=== PATIENT | female | born 1965 | race Caucasian/White ===

== ENCOUNTER → 2021-07-11 | Outpatient (CLI) | payer MEDICAID ==
[~2021-07-11] MED LIST: ABILIFY; ASPIR 8181 MG PO; AVELOX400 MG PO; B/P MED; BACTRIM DS TAB1 EACH; BENTYL 20 MG TA20 M1 PO; BUPROPION; CELEXA; CELEXA20 MG PO; CELEXA40 MG PO; CIPROFLOXACIN500 M1 PO; CLONAZEPAM; CLONAZEPAM 1 MG1 M1 PO; CLONAZEPAM PO; COLESTID1 GM PO; COREG6.25 MG PO; COZAAR 50 MG TA50 M2 PO; CRESTOR; CRESTOR20 MG PO; CYMBALTA20 MG PO; CYMBALTA60 MG PO; DIABETA 1.25M1.25 M1; FENOFIBRIC ACI135 MG PO; FLONASE16 GM INH; GLUCOPHAGE1000 MG PO; GLYBURIDE 5 MG T5 MG PO; HTN MED; JANUMET 50-1,01 EACH PO; JANUVIA25 MG; LAMICTAL100 MG; LANTUS SUBQ; LANTUSSOLASTAR; LEVEMIR FL100 UNIT/1 SQ; LEVEMIR SUBQ; LISINOPRIL20 MG PO; METFORMIN; METFORMIN HCL500 MG PO; NORCO 5-325 TA1 EACH PO; NOVOLOG100 UNIT/1 SUBQ; OMEGA-31000 M1 PO; PERCOCET 7.5-31 EACH PO; PREDNISONE 10 M10 MG PO; PROAIR HFA8.5 GM IH; PROAIR HFA8.5 GM INH; PROMETHAZINE V480 M1 PO; REGLAN 10 MG TA10 MG PO; TRICOR; TRICOR48 MG PO; TRILIPIX135 MG PO; TRILIPIX45 MG PO; VENTOLIN HFA 1818 GM INH; VIIBRYD40 MG PO; VITAMIN D1000 UNI1 PO; VITAMIN D400 UNI1; ZOFRAN ODT4 MG PO; ZPAK PO; ZYRTEC10 MG PO
== END ==
LOC: M.WC 07-09 09:00
PROVIDERS: ATTEND Family Medicine
DX: S81.801A Unspecified open wound, right lower leg, initial encounter (principal); S41.102A Unspecified open wound of left upper arm, initial encounter; L98.8 Other specified disorders of the skin and subcutaneous tissue; L28.1 Prurigo nodularis; R21 Rash and other nonspecific skin eruption; F17.200 Nicotine dependence, unspecified, uncomplicated; Z79.899 Other long term (current) drug therapy; X58.XXXA Exposure to other specified factors, initial encounter; Y93.89 Activity, other specified; Y92.89 Other specified places as the place of occurrence of the external cause; Y99.8 Other external cause status

== ENCOUNTER → 2021-07-18 | Outpatient (CLI) | payer MEDICAID | LOC: M.WC 08:29 | PROVIDERS: ATTEND Family Medicine | DX: S81.801D Unspecified open wound, right lower leg, subsequent encounter (principal); S41.102D Unspecified open wound of left upper arm, subsequent encounter; L98.8 Other specified disorders of the skin and subcutaneous tissue; L28.1 Prurigo nodularis; R21 Rash and other nonspecific skin eruption; F17.200 Nicotine dependence, unspecified, uncomplicated; X58.XXXD Exposure to other specified factors, subsequent encounter ==

== ENCOUNTER → 2021-07-25 | Outpatient (CLI) | payer MEDICAID | LOC: M.WC 07-24 13:49 | PROVIDERS: ATTEND Family Medicine | DX: S81.801D Unspecified open wound, right lower leg, subsequent encounter (principal); S41.102D Unspecified open wound of left upper arm, subsequent encounter; L98.8 Other specified disorders of the skin and subcutaneous tissue; L28.1 Prurigo nodularis; R21 Rash and other nonspecific skin eruption; F17.200 Nicotine dependence, unspecified, uncomplicated; Z79.899 Other long term (current) drug therapy; X58.XXXD Exposure to other specified factors, subsequent encounter ==

== ENCOUNTER → 2021-08-01 | Outpatient (CLI) | payer MEDICAID | LOC: M.WC 09:08 | PROVIDERS: ATTEND Family Medicine | DX: S81.801D Unspecified open wound, right lower leg, subsequent encounter (principal); S41.102D Unspecified open wound of left upper arm, subsequent encounter; L98.8 Other specified disorders of the skin and subcutaneous tissue; L28.1 Prurigo nodularis; R21 Rash and other nonspecific skin eruption; F17.200 Nicotine dependence, unspecified, uncomplicated; Z79.4 Long term (current) use of insulin; Z79.899 Other long term (current) drug therapy; X58.XXXD Exposure to other specified factors, subsequent encounter ==

== ENCOUNTER → 2021-08-08 | Outpatient (CLI) | payer MEDICAID | LOC: M.WC 08:58 | PROVIDERS: ATTEND Family Medicine | DX: S81.801D Unspecified open wound, right lower leg, subsequent encounter (principal); L28.1 Prurigo nodularis; L98.8 Other specified disorders of the skin and subcutaneous tissue; F17.200 Nicotine dependence, unspecified, uncomplicated; Z79.899 Other long term (current) drug therapy; X58.XXXD Exposure to other specified factors, subsequent encounter ==